=== PATIENT | female | born 1950 | race Caucasian/White ===

== ENCOUNTER 2023-01-14 08:52 | Inpatient (IN) ==
[~2023-01-14 08:52] MED LIST: ceFAZolin 2000MG 2,000 MG/15 ML SYR IV SCH
[2023-01-14] MEDS ORDERED: MoRPHine SULFATE 2 MG/ML CARP IV PRN ×2 (09:00→15:42)
--- NOTE | 2023-01-14 09:05 | Emergency Department Note ---
Impression & Plan Fall, Closed left hip fracture ED Provider Note INFORMANT: Patient ED PROVIDER(S): Oli Meyer DO CHIEF COMPLAINT: Fall, left hip pain PLAN: Disposition: Admission Outpatient prescription management: [none] Discussion with: I spoke with the hospitalist, who will see the patient for admission/observation and further evaluation and consultation. MEDICAL DECISION MAKING: This is a 72-year-old female who presents to the ED with a chief complaint of a fall and left hip pain. The patient states that she was getting ready for cheondoism when she turned and lost her balance falling on her left hip. She does have some mild dementia by history although she seems to be awake and alert and answers questions appropriately. The patient also has a history of Parkinson's. She does complain of left hip tenderness on my palpation. No shortening or rotation. There is some discomfort in the left hip with axial loading of the left leg. Neurovascular intact distal. No other injuries. Head is without any hematomas. She denies striking her head or loss of consciousness. Moves upper extremities without discomfort. No pain with axial loading. Thorax is without tenderness. Abdomen soft nontender. X-ray of the left hip and pelvis shows a impacted left femoral neck fracture. Chest x-ray does not show acute process. Urine did not show infection. CBC did not show anemia or leukocytosis. Chemistry panel showed no electrolyte abnormality or significant kidney dysfunction. The patient was given some IV morphine for pain. She will be seen by the hospitalist and orthopedic for further evaluation and care. Triage Nursing notes reviewed. Vital Signs: reviewed Prior /Outside records reviewed: [none] Differential diagnosis: Hip fracture, dislocation, contusion, other Diagnostics, as interpreted by me: 12 lead ECG: Sinus rhythm at a rate of 60. No ST elevation. No PVCs. Normal QTc Cardiac Monitoring ordered: Sinus rhythm in the 60s Medical decision rules: [none] Imaging studies: Chest x-ray: No pneumonia or pneumothorax. X-ray left hip: Femoral neck fracture Procedures: none. Critical care: none. HPI: See MDM above. PAST MEDICAL HISTORY: See Below PAST SURGICAL HISTORY: See Below SOCIAL HISTORY: See Below HOME MEDICATIONS:See Below ALLERGIES: See Below VITALS: See Below PHYSICAL EXAMINATION: See MDM for positive findings otherwise unremarkable. CONSTITUTIONAL/VITAL SIGNS: Reviewed GENERAL:done as appropriate INTEGUMENTARY: done as appropriate HEAD: done as appropriate EYES: done as appropriate RESPIRATORY: done as appropriate CARDIOVASCULAR:done as appropriate GI/ABDOMEN:done as appropriate EXTREMITIES: done as appropriate NEUROLOGICAL: done as appropriate PSYCHIATRIC:done as appropriate MUSCULOSKELETAL:done as appropriate TRIAGE NURSING DOCUMENTATION REVIEWED. Past Med/Surg History Medical History No pertinent past medical history Social History Smoking Status: Never smoker Preferred Language: Vincentian current occupational status: retired Feels Safe at Home: Yes Allergies Allergies Allergy/AdvReac Type Severity Reaction Status Date / Time gluten Allergy Unknown Verified 01/14/23 09:48 fexofenadine AdvReac Unknown Agitated Verified 01/14/23 09:48 pneumococcal vaccine AdvReac Unknown Rash Verified 01/14/23 09:48 procaine AdvReac Unknown Verified 01/14/23 09:48 pseudoephedrine AdvReac Unknown Agitated Verified 01/14/23 09:48 Home Meds Home Medications Medication Instructions Recorded Confirmed ascorbic acid (vitamin C) 500 mg 500 mg PO DAILY@1200 01/14/23 01/14/23 tablet (Vitamin C) calcium-vitamin D3-vitamin K 500 1 tab PO DAILY@13 01/14/23 01/14/23 mg-500 unit-40 mcg chewable tablet carbidopa 25 mg-levodopa 100 mg 1 tab PO DAILY@,,15,01/14/23 01/14/23 tablet carbidopa ER 50 mg-levodopa 200 mg 1 tab PO HS 01/14/23 01/14/23 tablet,extended release docusate sodium 100 mg capsule 100 mg PO BID 01/14/23 01/14/23 entacapone 200 mg tablet 200 mg PO DAILY@,15 01/14/23 01/14/23 glucosamine sulf dipot 1 cap PO DAILY@119901/14/23 01/14/23 chlr,msm,chond 550 mg-C 30 mg-milena 1 mg capsule (Glucosamine Chondroitin) melatonin 5 mg tablet 5 mg PO HS PRN Insomnia 01/14/23 01/14/23 meloxicam 7.5 mg tablet 7.5 mg PO DAILY 01/14/23 01/14/23 omega 3-ipo-lec-fish oil 1,000 mg 1 cap PO DAILY@119901/14/23 01/14/23 (120 mg-180 mg) capsule (Fish Oil) vitamin E 100 unit capsule 100 unit PO DAILY@1200 01/14/23 01/14/23 Results & Data (ED) Vital Signs Vital Signs - 24 hr 01/14/23 09:06 01/14/23 09:00 Temperature 36.5 C Temperature Source Oral Pulse Rate 72 78 Respiratory Rate 18 Respiratory Effort / Characteristics Non-Labored Spontaneous Respiratory Depth Normal Respiratory Pattern Regular Blood Pressure 200/98 H Blood Pressure Mean 132 Blood Pressure Position Sitting Pulse Oximetry 98 Oxygen Delivery Method Room Air Sepsis Recent Fever Within 48 Hours No Sepsis New/Unexplained Change in Mental Status N/A Sepsis Action Taken by Nursing No Action Required Laboratory Data 01/14/23 09:16 01/14/23 09:16 Lab Results 01/14/23 01/14/23 01/14/23 Range/Units 09:02 09:16 09:16 WBC 3.68 L (4.8-10.8) K/ul RBC 4.33 (4.20-5.40) M/uL Hgb 13.7 (12.0-16.0) g/dl Hct 39.7 (37.0-47.0) % MCV 91.7 (80.0-100.0) fL MCH 31.6 (25.0-34.0) pg MCHC 34.5 (32.0-36.0) g/dL RDW Std Deviation 39.3 (36.4-46.3) fL RDW Coeff of [place] 11.7 (11.5-14.5) % Plt Count 223 (130-400) K/uL MPV 8.5 L (9.4-12.4) fL Immature Gran % (Auto) 0.3 % Neut % (Auto) 64.9 % Lymph % (Auto) 24.5 % [place] % (Auto) 9.0 % Eos % (Auto) 0.8 % Baso % (Auto) 0.5 % Neut # (Auto) 2.39 (1.40-6.50) K/uL Lymph # (Auto) 0.90 L (1.2-3.4) K/uL [place] # (Auto) 0.33 (0.11-0.59) K/uL Eos # (Auto) 0.03 (0-0.50) K/uL Baso # (Auto) 0.02 (0-0.2) K/uL Immature Gran # (Auto) 0.01 (0.01-0.20) K/uL Sodium 140 (136-145) mmol/L Potassium 3.7 (3.5-5.1) mmol/L Chloride 108 H (98-107) mmol/L Carbon Dioxide 28 (21-32) mmol/L Anion Gap 4 (3-11) BUN 10 (6-23) mg/dl Creatinine 0.74 (0.6-1.2) mg/dl Est Cr Clr Drug Dosing Not Reportable Est GFR ( Amer) 95.1 ml/min Est GFR (Non-Af Amer) 82.1 ml/min BUN/Creatinine Ratio 13.5 (10-20) Glucose 107 H (70-99(Fasting)) mg/dl Calcium 9.1 (8.6-10.3) mg/dl Total Bilirubin 0.6 (0.2-1.0) mg/dl AST 19 (13-39) U/L ALT 18 (7-52) U/L Alkaline Phosphatase 72 (34-104) U/L Total Protein 6.7 (6.0-8.3) gm/dl Albumin 4.1 (3.4-5.0) gm/dl Globulin 2.6 (2.5-4.0) gm/dl Albumin/Globulin Ratio 1.6 (0.9-2) Urine Color Yellow Urine Appearance Clear (Clear) Urine pH 8.0 H (4.5-7.5) Ur Specific [place] 1.010 (1.000-1.030) Urine Protein Negative (Negative) Urine Glucose (UA) Negative (Negative) Urine Ketones Negative (Negative) Urine Blood Negative (Negative) Urine Nitrite Negative (Negative) Urine Bilirubin Negative (Negative) Urine Urobilinogen Negative (Negative) Ur Leukocyte Esterase Negative (Negative) Administered Medications Morphine Sulfate (Morphine Sulfate 2 Mg/Ml Carp) 2 mg IV Q1H PRN PRN Reason: Moderate Pain (Rating 3,4,5,6) Stop: 01/28/23 08:59 Last Admin: 01/14/23 09:37 Dose: 2 mg Documented By: MARIO Imaging Data Radiologist's Impression: Chest X-Ray 01/14/23 09:00 XR chest 1V portable CLINICAL HISTORY: hip fx? TECHNIQUE: Single frontal radiograph of the chest was obtained. Comparison: Comparison is made to chest radiograph 01/28/2019 FINDINGS: No lines and tubes are seen. The cardiomediastinal silhouette is normal. The lungs are clear. No evidence of pleural effusion or pneumothorax. IMPRESSION: No acute chest disease. ACT 112: Negative or not required by law. Electronically signed by: Toni Navarro M.D. 01/14/2023 9:22 AM Hip X-Ray 01/14/23 09:00 XR hip LT min 2V CLINICAL HISTORY: fall, pain TECHNIQUE: 2 views of the left hip were obtained. Comparison: Comparison is made to pelvis radiograph 01/28/2019 FINDINGS: There is a femoral neck fracture with overriding of fragments. Degenerative changes are seen in the hip joint. Soft tissue swelling is seen. IMPRESSION: Impacted femoral neck fracture with associated soft tissue swelling. ACT 112: Negative or not required by law. Electronically signed by: Toni Navarro M.D. 01/14/2023 9:24 AM Discharge Plan Visit Data Chief Complaint: Hip Pain Stated Complaint: FALL, L HIP & LEG PAIN ED Provider: Oli Meyer Discharge Problem: Fall, Closed left hip fracture Patient Disposition: Being Evaluated by Hospitalist Forms Stand Alone Forms: My [facility] Sp[facility] Prescriptions Prescriptions: No Action vitamin E 100 unit Capsule 100 unit PO DAILY@1200 carbidopa-levodopa 50-200 mg tablet extended release 1 tab PO HS meloxicam 7.5 mg tablet 7.5 mg PO DAILY entacapone 200 mg tablet 200 mg PO DAILY@07,15 ascorbic acid (vitamin C) [Vitamin C] 500 mg Tablet 500 mg PO DAILY@1200 docusate sodium 100 mg Capsule 100 mg PO BID carbidopa-levodopa 25-100 mg tablet 1 tab PO DAILY@07,11,15,19 melatonin 5 mg Tablet 5 mg PO HS PRN (Reason: Insomnia) calcium-vitamin D3-vitamin K [Viactiv] 500-500-40 mg-unit-mcg Tablet,Chewable 1 tab PO DAILY@13 omega 1-bzx-nfn-fish oil [Fish Oil] 1,000 mg (120 mg-180 mg) Capsule 1 cap PO DAILY@1200 Glucosamine Chondroitin 550-30-1 mg Capsule 1 cap PO DAILY@1200 Referrals Referrals: PCP,NO [Primary Care Provider] -
--- NOTE | 2023-01-14 09:24 | XRay Report ---
XR chest 1V portable CLINICAL HISTORY: hip fx? TECHNIQUE: Single frontal radiograph of the chest was obtained. Comparison: Comparison is made to chest radiograph 01/28/2019 FINDINGS: No lines and tubes are seen. The cardiomediastinal silhouette is normal. The lungs are clear. No evid ence of pleural effusion or pneumothorax. IMPRESSION: No acute chest disease. ACT 112: Negative or not required by law. Electronically signed by: Toni Navarro M.D. 01/14/2023 9:22 AM
--- NOTE | 2023-01-14 09:26 | XRay Report ---
XR hip LT min 2V CLINICAL HISTORY: fall, pain TECHNIQUE: 2 views of the left hip were obtained. Comparison: Comparison is made to pelvis radiograph 01/28/2019 FINDINGS: There is a femoral neck fracture with overriding of fragments. Degenerative changes are seen in the h ip joint. Soft tissue swelling is seen. IMPRESSION: Impacted femoral neck fracture with associated soft tissue swelling. ACT 112: Negative or not required by law. Electronically signed by: Toni Navarro M.D. 01/14/2023 9:24 AM
[2023-01-14 09:48] LABS: Basophils # (auto) 0.02 K/uL (0-0.2); Basophils % (auto) 0.5 %; Eosinophils # (auto) 0.03 K/uL (0-0.50); Eosinophils % (auto) 0.8 %; Hematocrit (blood only) 39.7 % (37.0-47.0); Hemoglobin 13.7 g/dl (12.0-16.0); Immature Granulocytes # (auto) 0.01 K/uL (0.01-0.20); Immature Granulocytes % (auto) 0.3 %; Lymphocytes % (auto) 24.5 %; Mean Corpuscular Hemoglobin 31.6 pg (25.0-34.0); Mean Corpuscular Hgb Conc 34.5 g/dL (32.0-36.0); Mean Corpuscular Volume 91.7 fL (80.0-100.0); Mean Platelet Volume 8.5 fL (9.4-12.4); Monocytes # (auto) 0.33 K/uL (0.11-0.59); Neutrophils # (auto) 2.39 K/uL (1.40-6.50); Neutrophils % (auto) 64.9 %; Platelet Count 223 K/uL (130-400); RDW Coefficient of Variation 11.7 % (11.5-14.5); RDW Standard Deviation 39.3 fL (36.4-46.3); Red Blood Count 4.33 M/uL (4.20-5.40); White Blood Count 3.68 K/ul (4.8-10.8)
[2023-01-14 09:49] LABS: Appearance Urine Clear (Clear); Bilirubin Urine Negative (Negative); Blood Urine Negative (Negative); Color Urine Yellow; Glucose Urine UA Negative (Negative); Ketones Urine Negative (Negative); Leukocyte Esterase Urine Negative (Negative); Nitrite Urine Negative (Negative); Protein Urine Negative (Negative); Urobilinogen Urine Negative (Negative)
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
[2023-01-14 10:00] LABS: Alanine Aminotransferase 18 U/L (7-52); Albumin Globulin Ratio 1.6 (0.9-2); Albumin Level 4.1 gm/dl (3.4-5.0); Alkaline Phosphatase 72 U/L (34-104); Anion Gap 4 (3-11); Aspartate Aminotransferase 19 U/L (13-39); BUN Creatinine Ratio 13.5 (10-20); Bilirubin,Total 0.6 mg/dl (0.2-1.0); Blood Urea Nitrogen 10 mg/dl (6-23); Calcium 9.1 mg/dl (8.6-10.3); Carbon Dioxide 28 mmol/L (21-32); Chloride 108 mmol/L (98-107); Est GFR (African American) 95.1 ml/min; Est GFR (Non-African American) 82.1 ml/min; Globulin 2.6 gm/dl (2.5-4.0); Glucose 107 mg/dl (70-99(Fasting)); Potassium 3.7 mmol/L (3.5-5.1); Sodium 140 mmol/L (136-145); Total Protein 6.7 gm/dl (6.0-8.3)
[2023-01-14] MEDS ORDERED: ACETAMINOPHEN 1,000 MG/100 ML VIAL IV STA (10:11)
[2023-01-14 10:13] LABS: Partial Thromboplastin Ratio 0.8; Partial Thromboplastin Time 22.8 Seconds (21.0-31.0); Prothrombin Time 11.4 Seconds (9.0-12.0)
--- NOTE | 2023-01-14 11:16 | Communication Note ---
Date of Service: January 14, 2023 ATTENDING ADDENDUM: 72 yo F with Parkinsons and peripheral vertigo who presents with an acute left hip fracture after a fall at home. There was no LOC and this was the second fall in two days, precipitated by peripheral vertigo. She is otherwise very functional and ambulates without any assistive device. She denies any chest pain or SOB in the past 6 months and no history of coronary disease or stroke. She is not a diabetic and has normal functioning kidneys. She is not on anticoagulants and last ate something last evening. Reviewed allergies, medical history with her today. DIL present at bedside. She denies pain anywhere other than her left hip. She is not a fan of narcotics or anything that will cause her to feel out of control. After IV tylenol in the ER, her BP went from 200/98 to 172 systolic. She does not have hypertension. Physical exam reveals a WNWD female in mild distress. She has masked facies and some irritation under her her neck that is not quite described as a rash. Head is NC/AT and no tenderness to palpation of the scalp or neck. No rigidity with UE strength 5/5. No sensation abnormality. Legs not moved 2/2 pain. Able to demonstrate normal dorsi/plantar flexion. Heart sounds are somewhat distant on auscultation with S1/2 heard and no murmurs. Lungs are CTAB. Abdomen is soft and ND. Pulses 2+ in all extremities. Workup including CBC, BMP, coags, urine is all negative. EKG reviewed and NSR with no evidence of ischemia. Hip xray and pelvic xray reviewed with left hip fracture seen. Acute left hip fracture after mechanical fall Parkinson's disease Peripheral vertigo Proceed to surgery today with Dr. Ortiz's team. Resume diet post op. Her perioperative risk for surgery is acceptable and is related to her age, which is not modifiable. Cont standard DVT prevention. Cont Sinemet perioperatively as ordered. Cont pain control with Tylenol and PRN oxycodone. DO [employer]
[2023-01-14] MEDS ORDERED: fentaNYL citrate PF 100 MCG/2 ML VIAL ONE (11:21)
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
[2023-01-14] MEDS ORDERED: FAMOTIDINE/PF 20 MG/2 ML VIAL IV ONE (11:32)
[2023-01-14] MEDS ORDERED: DEXAMETHASONE SOD INJ 4 MG/ML VIAL ONE ×2 (11:36→13:07)
[2023-01-14] MEDS ORDERED: PROPOFOL IV EMULSION 10 MG/ML 20 ML VIAL IV ONE ×2 (11:36→12:41)
[2023-01-14] MEDS ORDERED: ONDANSETRON INJ 2 MG/ML 2 ML VIAL ONE (11:36)
[2023-01-14] MEDS ORDERED: ROCURONIUM BROMIDE 10 MG/ML 5 ML VIAL IV ONE (11:36)
[2023-01-14] MEDS ORDERED: LIDOCAINE 2% 2 ML VIAL/AMP(20MG/ML) INFIL ONE (11:36)
[2023-01-14] MEDS ORDERED: HYDROmorphone INJ 2 MG/ML SYR/VIAL ONE (11:37)
--- NOTE | 2023-01-14 11:46 | CT Scan Report ---
CT head/brain wo con CLINICAL HISTORY: fall, dizziness Technique: Contiguous axial CT images of the head were acquired from the base of the skull to the cari alva without intravenous contrast administration. Images were viewed in brain, subdural and bone [facility] ws. Automated dose lowering techniques and/or adjustment according to patient size were utilized for this exam. Comparison: None available at the time of this dictation. Findings: Areas of decreased attenuation are present in the periventricular and subcortical white matter bilate rally consistent with small vessel ischemic disease. Generalized cerebral atrophy with commensurate e nlargement of the ventricles, sulci, and cisterns is also present. There is no acute intracranial hem orrhage or evidence of acute territorial infarction. No shift of the midline structures, mass effect, or extra-axial abnormalities are shown. Atherosclerotic calcifications are present in the intracran ial segments of the internal carotid arteries. Imaged portions of the paranasal sinuses and mastoid air cells are clear. The orbits appear normal. There are no acute fractures of the calvaria or scalp swelling. Impression: No acute intracranial hemorrhage, no evidence of acute territorial infarction or other acute intracra nial disease process. ACT 112: Negative or not required by law. Electronically signed by: Toni Navarro M.D. 01/14/2023 11:45 AM
--- NOTE | 2023-01-14 11:48 | Electrocardiogram Report ---
Test Reason : Blood Pressure : / mmHG Vent. Rate : 074 BPM Atrial Rate : 074 BPM P-R Int : 160 ms QRS Dur : 084 ms QT Int : 398 ms P-R-T Axes : 070 055 073 degrees QTc Int : 441 ms Normal sinus rhythm Normal ECG When compared with ECG of 14-JUL-2019 20:55, No significant change was found Confirmed by Yunior Burk ([id number]) on 01/14/2023 11:47:57 AM Referred By: REFERRED SELF Confirmed By:Quentin Burk
--- NOTE | 2023-01-14 11:53 | CT Scan Report ---
CT cervical spine wo con CLINICAL HISTORY: fall TECHNIQUE: Multidetector row helical CT of the cervical spine was performed without administration of intravenous contrast. Coronal and sagittal reformations were obtained. Automated dose lowering techn iques and/or adjustment according to patient size were utilized for this exam. Comparison: Comparison is made to CT chest 07/14/2019 FINDINGS: No acute fractures or subluxations are identified. Degenerative changes are seen in the visualized sp ine. The alignment is normal. Soft tissues are unremarkable. IMPRESSION: Degenerative changes without evidence of acute bony injury. ACT 112: Negative or not required by law. Electronically signed by: Toni Navarro M.D. 01/14/2023 11:52 AM
[2023-01-14] MEDS ORDERED: fentaNYL citrate PF 100 MCG/2 ML VIAL IV PRN (12:04)
[2023-01-14] MEDS ORDERED: ePHEDrine sulfate 50 MG/ML AMP IV PRN (12:04)
[2023-01-14] MEDS ORDERED: ONDANSETRON INJ 2 MG/ML 2 ML VIAL IV PRN ×3 (12:04→15:42)
[2023-01-14] MEDS ORDERED: ATROPINE SULFATE 0.1 MG/ML 10ML SYR IV PRN (12:04)
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
[2023-01-14] MEDS ORDERED: MIDAZOLAM HCL 1 MG/ML 2ML VIAL ONE (12:14)
[2023-01-14] MEDS ORDERED: BUPIVACAINE 0.5 % 5 MG/1 ML MPF 30ML VIAL ONE (12:16)
[2023-01-14] MEDS ORDERED: THROMBIN FOR SOLN 20000 UNIT KIT ONE (12:16)
[2023-01-14] MEDS ORDERED: LIDOCAINE 1% LOCAL 20 ML VIAL ONE (12:16)
[2023-01-14] MEDS ORDERED: TRANEXAMIC ACID / 0.7% NACL 1000MG/100ML BAG IV ONE (12:36)
[2023-01-14] MEDS ORDERED: ceFAZolin 330 MG/ML 1 GM VIAL ONE ×2 (12:36→13:08)
[2023-01-14] MEDS ORDERED: ePHEDrine sulfate 50 MG/ML AMP ONE (13:07)
[2023-01-14] MEDS ORDERED: ceFAZolin 2000MG 2,000 MG/15 ML SYR IV ONE (13:24)
[2023-01-14] MEDS ORDERED: TRANEXAMIC ACID / 0.7% NACL 1,000 MG/100 ML BAG IV ONE (13:25)
[2023-01-14] MEDS ORDERED: PHENYLEPHRINE HCL 10 MG/ML VIAL ONE (13:43)
--- NOTE | 2023-01-14 14:57 | Operative Report ---
Post Operative Report Pre & Post Diagnosis Operation Date: 01/14/23 11:10 Pre-Op Diagnosis: Closed left hip fracture Post-Op Diagnosis: Closed left hip fracture I identified the patient and participated in the time-out.: Yes Procedure Operation Date: 01/14/23 11:10 Actual Procedures p Bipolar Hip Prosthesis(Left) - Scot Ortiz MD Surgeon Scot Ortiz MD Stock Worker KARI boogie abdoulaye or fellow available Estimated Blood Loss 250 Findings Consistent with Post-Op Diagnosis Specimens None Anesthesia Type Spinal MAC Complications none Disposition Accompanied Patient To Recovery: No Disposition: Recovery Room Indications Rowena is 72. She fell and sustained a left femoral neck fracture. Hemiarthroplasty was recommended and she agreed to proceed. Description of Procedure Informed consent obtained. Patient identified. She identified the operative site as the left hip. I marked with my initials. A preoperative surgical timeout performed. A preop dose of IV antibiotics was given. She was taken to the OR positioned decubitus with the left side up. Axillary roll inserted. Bony prominences inspected and padded. Stolberg body positioner utilized. The left hip was prescrubbed and then prepped and draped in the usual sterile fashion. DVT prophylaxis with the mechanical devices. Postoperatively early mobility mechanical devices and Lovenox. Preop TXA given. A posterior approach to the hip was made. The hip abductor mechanism was split in line with the incision. The short external rotators were elevated up off of the joint capsule and tagged. A posterior capsulotomy was performed. Inferior capsule released. Posterior capsule mobilized. Femur retracted anteriorly and the femoral head was removed and sized to 47. Trial fit well. Labrum and acetabulum intact without arthritis. Hip placed into the 9090 position. Femoral neck cut was made using the template just under 1 fingerbreadth north of the lesser trochanter. Box cutting guide was utilized followed by the canal finder. At this point it was noted that there was a fair amount of blood welling up from the intramedullary canal. This continued throughout the surgical procedure until the canal had plugged. Broaching began at size 10. Anteversion was applied but limited by bony geometry to about 20 degrees. Broaching up continued up to size 13 at which point there was good fit and fill. Trialing was performed and a 0 neck length looked adequate. There was good stability. The canal was plugged. Canal irrigated. Thrombin was utilized. This seemed to help control the femoral canal bleeding. Canal was dried. 2 bags of Simplex P cement mixed. While in a osteomy liquidy state retrograde fill. Implant inserted in 20 to 25 degrees of anteversion and lateral positioning. Held until cement hardened. Trialing again performed and 3.5+ neck length selected. In neutral internal rotation was at least 30. In abduction internal rotation about 20. There is no impingement. Shuck test was negative in extension and mid position. Copious irrigation was performed throughout the surgical procedure and at the end. Soft tissues Moist. 1% lidocaine with up without epinephrine and half percent Marcaine plain were injected into the skin and subcutaneous tissues to conclusion of the procedure. The short external rotators and joint capsule were repaired back to the hip abductor mechanism and greater trochanter with #1 Ethibond. The gluteal fascia and IT band were closed with a running and interrupted #1 Vicryl. The skin was then closed in layers with 0 and 2-0 Vicryl. Skin closed with benedicto and a dressing consisting of Xeroform 4 x 4's ABD foam tape and a hip abduction pillow was applied. Patient awakened from anesthesia difficulty taken to recovery in stable condition. Resected femoral head sent for specimen. Counts were correct blood loss estimated to be 250 cc. No complications. At the conclusion of the operation spoke to patient's son and informed him my findings. The components inserted were a size 10 centralizer. A small canal restrictor. A 47 shell with appropriate inner liner for 28 mm +3 head. A size 12 Sherwin LD fracture stem. She will weight-bear as tolerated. We will check an H&H in recovery. Postop TXA. She may weight-bear as tolerated. Check a postop x-ray. I attest to the content of the Intraoperative Record and any orders documented therein. Any exceptions are noted below.
[2023-01-14] MEDS ORDERED: bisacodyL 10 MG SUPP PR PRN ×2 (14:59→15:42)
[2023-01-14] MEDS ORDERED: MAGNESIUM HYDROXIDE SUSP 30 ML UDC PO PRN ×2 (14:59→15:42)
[2023-01-14] MEDS ORDERED: HYDROmorphone INJ 0.5 MG/0.5 ML SYR IV PRN (14:59)
[2023-01-14] MEDS ORDERED: NALOXONE HCL 0.4 MG/1 ML VIAL/CARP IV PRN ×2 (14:59→15:42)
[2023-01-14] MEDS ORDERED: ALUMINUM/MAGNESIUM SUSP 30 ML UDC PO PRN (14:59)
[2023-01-14] MEDS ORDERED: oxyCODONE HCL IR 5 MG TAB (IMMEDIATE RELEASE) PO PRN ×3 (14:59→15:42)
[2023-01-14] MEDS ORDERED: METOCLOPRAMIDE HCL INJ 5 MG/ML 2 ML VIAL IV PRN (14:59)
[2023-01-14] MEDS ORDERED: diphenhydrAMINE 50 MG/ML VIAL IV PRN (14:59)
--- NOTE | 2023-01-14 14:59 | Operative Report ---
Post Operative Report Pre & Post Diagnosis Operation Date: 01/14/23 11:10 Pre-Op Diagnosis: Closed left hip fracture Post-Op Diagnosis: Closed left hip fracture I identified the patient and participated in the time-out.: Yes Procedure Operation Date: 01/14/23 11:10 Actual Procedures p Bipolar Hip Prosthesis(Left) - Scot Ortiz MD Surgeon Scot Ortiz Research Computing Specialist KARI [place] or fellow available Estimated Blood Loss 250 Findings Consistent with Post-Op Diagnosis Specimens femoral head Description of Procedure I was present during the case assisting with wound retraction, would closure, dressing and abduction pillow placement. No fellow present. Please see Dr. Ortiz procedure note for specifics of the case. I attest to the content of the Intraoperative Record and any orders documented therein. Any exceptions are noted below.
--- NOTE | 2023-01-14 15:02 | Anesthesiology Progress Note ---
Date of Service January 14, 2023 Anesthesia Post Procedure Vital Signs Vital Signs: Temp Pulse Resp BP Pulse Ox O2 Del Method 01/14/23 12:00 85 20 189/85 H 97 Room Air 01/14/23 11:00 68 12 174/84 H 98 Room Air 01/14/23 09:00 97.7 F 78 18 200/98 H 98 Room Air 01/14/23 09:06 72 Pain Intensity Left Hip: Pain Intensity: 8 Transfer of Care Handoff Completed per policy Notes Mental Status: alert / awake / arousable and participated in evaluation Patient Amnestic to Procedure: Yes Nausea / Vomiting: adequately controlled Pain: adequately controlled Airway Patency, RR, SpO2: stable & adequate BP & HR: stable & adequate Hydration State: stable & adequate Neuraxial Anesthesia: was administered and sensory block is resolving Anesthetic Complications: no major complications apparent and Pt Satisfied with anesthetic care
[2023-01-14 15:40] LABS: Hematocrit (blood only) 36.2 % (37.0-47.0); Hemoglobin 12.4 g/dl (12.0-16.0)
[2023-01-14] MEDS ORDERED: POLYETHYLENE (MIRALAX) 17 GM PACK PO PRN (15:42)
[2023-01-14] MEDS ORDERED: SODIUM CHLORIDE 0.9% 1000ML 1,000 ML IV SCH (15:42)
[2023-01-14] MEDS ORDERED: ACETAMINOPHEN 325 MG TAB PO PRN (15:42)
[2023-01-14] MEDS: KETOROLAC TROMETHAMINE 15 MG/ML VIAL IV SCH ×2 (17:42→21:51)
[2023-01-14] MEDS: ENTACAPONE 200 MG TAB PO SCH (17:43)
[2023-01-14] MEDS: CARBIDOPA/LEVODOPA 25/100MG TAB PO SCH ×2 (17:44→19:50)
[2023-01-14] MEDS: SODIUM CHLORIDE 0.9% 1000ML 1,000 ML IV SCH (17:45)
[2023-01-14] MEDS ORDERED: LACTATED RINGER'S 1,000 ML IV ONE (18:57)
--- NOTE | 2023-01-14 19:51 | Orthopedic Progress Note ---
Date of Service January 14, 2023 Assessment & Plan (1) Closed left hip fracture: Plan: She is stable postop. X-rays show good positioning of the implant on the AP view without complication. I have ordered a lateral view. Her postop H&H is acceptable. She has mild hypotension and tachycardia. She is getting some fluids at this time through the medicine service. Surgical findings are discussed. Her vitamin D level is low and will need to be addressed. Admission and Anticipated Discharge Date Admission Date: January 14, 2023 Subjective Patient reports some discomfort in her left hip. Otherwise she is doing well. Physical Exam Physical Exam: DP and PT pulses are trace to 1+. Palpable bilaterally. Ankle and toe plantarflexion dorsiflexion inversion and eversion is 4 out of 5 on the left. Sensation is reported to be grossly intact to light touch in the left leg ankle and foot area. Her dressing is clean and dry her thigh is not tense or swollen. Results & Data Vital Signs (Past 12 Hours) Vital Signs Temp Pulse Pulse Pulse Resp BP BP 01/14/23 18:47 108 H 87/59 L 01/14/23 18:35 36.5 C 106 H 16 83/57 L 01/14/23 17:35 36.4 C L 106 H 16 93/65 L 01/14/23 16:35 36.4 C L 108 H 16 110/76 01/14/23 16:05 36.4 C L 87 16 107/72 01/14/23 15:46 36.4 C L 75 16 118/75 01/14/23 15:15 72 14 114/69 01/14/23 15:05 81 12 104/67 01/14/23 15:25 36.4 C L 78 15 118/78 01/14/23 14:57 36.4 C L 76 12 109/69 01/14/23 12:00 85 20 189/85 H 01/14/23 11:00 68 12 174/84 H 01/14/23 09:00 36.5 C 78 18 200/98 H 01/14/23 09:06 72 Pulse Ox O2 Del Method O2 Flow Rate 01/14/23 18:47 99 Room Air 01/14/23 18:35 97 Room Air 01/14/23 17:35 99 Room Air 01/14/23 16:35 99 Room Air 01/14/23 16:05 100 Room Air 01/14/23 15:46 99 Room Air 01/14/23 15:15 99 Nasal Cannula 2 01/14/23 15:05 99 Room Air 01/14/23 15:25 100 Nasal Cannula 2 01/14/23 14:57 99 Room Air 01/14/23 12:00 97 Room Air 01/14/23 11:00 98 Room Air 01/14/23 09:00 98 Room Air 01/14/23 09:06
[2023-01-14] MEDS ORDERED: TRANEXAMIC ACID / 0.7% NACL 1,000 MG/100 ML BAG IV SCH (21:00)
--- NOTE | 2023-01-14 21:12 | XRay Report ---
XR pelvis 1-2V routine CLINICAL HISTORY: In PACU - Post Surgical TECHNIQUE: A single frontal view of the pelvis was obtained. Comparison: Comparison is made to left hip radiograph 01/14/2023 FINDINGS: Patient is status post total hip arthroplasty with expected postsurgical changes including soft tissu e swelling, and subcutaneous emphysema. No periarticular lucency or hardware fracture is seen. IMPRESSION: Expected postoperative appearance status post placement of total hip arthroplasty. ACT 112: Negative or not required by law. Electronically signed by: Toni Navarro M.D. 01/14/2023 9:10 PM
[2023-01-14] MEDS: DOCUSATE SODIUM 100 MG CAP PO SCH (21:51)
[2023-01-14] MEDS: SENNA 8.6 MG TAB PO SCH (21:51)
[2023-01-14] MEDS: CARBIDOPA/LEVODOPA 50/200MG EXT REL TAB PO SCH (21:51)
[2023-01-14] MEDS: ACETAMINOPHEN 500 MG TAB PO SCH (21:52)
[2023-01-14] MEDS: ceFAZolin 1000MG 1,000 MG/7.5 ML SYR IV SCH (21:57)
[2023-01-14] MEDS: DOCUSATE SODIUM/SENNA 50/8.6MG TAB PO SCH (21:57)
[2023-01-15] MEDS: KETOROLAC TROMETHAMINE 15 MG/ML VIAL IV SCH ×2 (02:12→08:14)
[2023-01-15] MEDS: SODIUM CHLORIDE 0.9% 1000ML 1,000 ML IV SCH ×3 (03:32→15:40)
[2023-01-15] MEDS: ceFAZolin 1000MG 1,000 MG/7.5 ML SYR IV SCH (04:39)
[2023-01-15] MEDS: ACETAMINOPHEN 500 MG TAB PO SCH ×3 (06:09→21:36)
--- NOTE | 2023-01-15 07:02 | XRay Report ---
CROSSTABLE LATERAL RADIOGRAPH OF THE LEFT HIP CLINICAL HISTORY: shoot thru lateral only COMPARISON: Left hip radiographs January 14, 2023. FINDINGS: Left hip arthroplasty appears anatomic on crosstable lateral projection. No periprosthetic fracture is noted. There are skin benedicto. IMPRESSION: Expected appearance of the left hip arthroplasty on crosstable lateral projection. ACT 112: Negative or not required by law. Electronically signed by: Raman Howard M.D. 01/15/2023 7:00 AM
[2023-01-15 07:23] LABS: Hematocrit (blood only) 22.8 % (37.0-47.0); Hemoglobin 7.9 g/dl (12.0-16.0); Mean Corpuscular Hemoglobin 31.9 pg (25.0-34.0); Mean Corpuscular Hgb Conc 34.6 g/dL (32.0-36.0); Mean Corpuscular Volume 91.9 fL (80.0-100.0); Mean Platelet Volume 8.7 fL (9.4-12.4); Platelet Count 149 K/uL (130-400); RDW Coefficient of Variation 11.9 % (11.5-14.5); RDW Standard Deviation 40.6 fL (36.4-46.3); Red Blood Count 2.48 M/uL (4.20-5.40); White Blood Count 7.58 K/ul (4.8-10.8)
[2023-01-15] MEDS: ENTACAPONE 200 MG TAB PO SCH ×2 (07:29→16:03)
[2023-01-15] MEDS: CARBIDOPA/LEVODOPA 25/100MG TAB PO SCH ×4 (07:29→19:13)
[2023-01-15 07:36] LABS: BUN Creatinine Ratio 23.9 (10-20); Calcium 7.9 mg/dl (8.6-10.3); Creatinine Clr Calc Pharmacy 53.3 ml/min; Est GFR (African American) 73.1 ml/min; Est GFR (Non-African American) 63.1 ml/min; Potassium 4.7 mmol/L (3.5-5.1)
[2023-01-15 07:39] LABS: Basophils # (auto) 0.01 K/uL (0-0.2); Basophils % (auto) 0.1 %; Eosinophils # (auto) 0.01 K/uL (0-0.50); Eosinophils % (auto) 0.1 %; Immature Granulocytes # (auto) 0.04 K/uL (0.01-0.20); Immature Granulocytes % (auto) 0.5 %; Lymphocytes # (auto) 0.84 K/uL (1.2-3.4); Lymphocytes % (auto) 11.1 %; Monocytes # (auto) 0.74 K/uL (0.11-0.59); Monocytes % (auto) 9.8 %; Neutrophils # (auto) 5.94 K/uL (1.40-6.50); Neutrophils % (auto) 78.4 %; RBC Morphology Unremarkable
[2023-01-15] MEDS ORDERED: SODIUM CHLORIDE 0.9% 250 ML IV PRN ×2 (07:54→11:41)
[2023-01-15] MEDS ORDERED: dexAMETHasone 4 MG TAB PO SCH (08:00)
[2023-01-15] MEDS: MULTIVITAMIN TAB PO SCH (08:13)
[2023-01-15] MEDS: DOCUSATE SODIUM 100 MG CAP PO SCH ×2 (08:13→20:01)
[2023-01-15] MEDS: ENOXAPARIN INJ 40 MG/0.4 ML SYR SQ SCH (08:14)
--- NOTE | 2023-01-15 10:09 | Orthopedic Progress Note ---
Date of Service January 15, 2023 Assessment & Plan (1) S/P hip hemiarthroplasty: Plan: The patient and her son were educated regarding today's findings. Conservative care measures were discussed. Therapy can be tried again later today if her BP improves. I did speak with case management. They will visit with the patient and her son today to discuss short-term placement. Obviously she will not go anywhere today given her BP issues. Continue with ice to the hip intermittently as needed. Dressings will be changed tomorrow. Continue with PT/OT. Continue with SCDs. Continue with the wedge pillow for protection/hip precautions. Admission and Anticipated Discharge Date Admission Date: January 14, 2023 Subjective This 72-year-old female is seen today in her room, with her son present as well as the occupational therapist and nurse. She describes soreness in her left hip, but currently has no distinct pain. Therapy did attempt a standard at bedside today, but the patient became dizzy. BP at that time dropped to 65/30. Reclining in bed her BP recovered to 145/71. She denied any dizziness when reclining. She currently has no other complaints. No nausea, vomiting, chest pain, or shortness of breath. She does have known Parkinson's disease. Physical Exam Physical Exam: General: Frail, elderly female, in no acute distress. Laying in bed. Alert and oriented. Flat affect. Skin: Warm and dry with fair turgor. No rashes. No ecchymosis or edema. Postsurgical dressing is in place on the left hip. There is no bleeding through the bandages. Musculoskeletal: The patient has intact motor function of the left ankle and toes. She is able to flex and extend her knee and hip. She is able to rise from the bed with some assistance, and can stand on her own, though she becomes dizzy and lightheaded. Supple motion of the hip at this time. No appreciable leg length inequality. Neurologic: Gross sensation is intact across both lower extremities by soft touch. Peripheral pulses are 2+. Results & Data Vital Signs (Past 12 Hours) Vital Signs Temp Pulse Pulse Resp BP BP Pulse Ox 01/15/23 08:28 101 H 145/71 H 99 01/15/23 07:42 36.5 C 82 16 93/56 L 99 01/15/23 04:00 36.2 C L 89 16 94/56 L 97 01/15/23 00:22 36.3 C L 97 H 16 97/60 L 94 O2 Del Method 01/15/23 08:28 Room Air 01/15/23 07:42 Room Air 01/15/23 04:00 Room Air 01/15/23 00:22 Room Air Laboratory Results CBC obtained this morning shows white count of 7.58. H&H of 7.9 and 22.8. Platelets 149,000. Sodium 139, potassium 4.7, chloride 109, CO2 28. BUN of 22 with creatinine 0.92. Glucose 144.
[2023-01-15] MEDS: CHOLECALCIFEROL 1,000 UNITS 25 MCG TAB PO SCH (10:18)
[2023-01-15] MEDS ORDERED: HYDROCORTISONE SOD 50 MG in SYRINGE 0 ML IV ONE (11:00)
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
[2023-01-15] MEDS ORDERED: ERGOCALCIFEROL 50,000 UNITS 1250 MCG CAP PO ONE (19:00)
[2023-01-15] MEDS: CARBIDOPA/LEVODOPA 50/200MG EXT REL TAB PO SCH (20:01)
[2023-01-15] MEDS: DOCUSATE SODIUM/SENNA 50/8.6MG TAB PO SCH (20:01)
[2023-01-15] MEDS: SENNA 8.6 MG TAB PO SCH (20:02)
[2023-01-16] MEDS: ACETAMINOPHEN 500 MG TAB PO SCH ×3 (06:00→23:00)
[2023-01-16] MEDS: SODIUM CHLORIDE 0.9% 1000ML 1,000 ML IV SCH (06:00)
[2023-01-16] MEDS: CARBIDOPA/LEVODOPA 25/100MG TAB PO SCH ×4 (06:01→20:29)
[2023-01-16] MEDS: ENTACAPONE 200 MG TAB PO SCH ×2 (06:02→15:53)
[2023-01-16 06:48] LABS: Hematocrit (blood only) 24.8 % (37.0-47.0); Hemoglobin 8.6 g/dl (12.0-16.0); Mean Corpuscular Hemoglobin 31.6 pg (25.0-34.0); Mean Corpuscular Hgb Conc 34.7 g/dL (32.0-36.0); Mean Corpuscular Volume 91.2 fL (80.0-100.0); Platelet Count 164 K/uL (130-400); RDW Coefficient of Variation 12.4 % (11.5-14.5); RDW Standard Deviation 40.8 fL (36.4-46.3); Red Blood Count 2.72 M/uL (4.20-5.40); White Blood Count 9.95 K/ul (4.8-10.8)
[2023-01-16 07:17] LABS: BUN Creatinine Ratio 24.6 (10-20); Calcium 8.5 mg/dl (8.6-10.3); Creatinine Clr Calc Pharmacy 75.4 ml/min; Est GFR (African American) 104.3 ml/min; Magnesium 1.8 mg/dl (1.7-2.4); Potassium 3.6 mmol/L (3.5-5.1)
[2023-01-16] MEDS: MULTIVITAMIN TAB PO SCH (08:25)
[2023-01-16] MEDS: CHOLECALCIFEROL 1,000 UNITS 25 MCG TAB PO SCH (08:25)
[2023-01-16] MEDS: DOCUSATE SODIUM 100 MG CAP PO SCH ×2 (08:25→20:30)
[2023-01-16] MEDS: ENOXAPARIN INJ 40 MG/0.4 ML SYR SQ SCH (08:26)
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
[2023-01-16] MEDS ORDERED: MECLIZINE 12.5 MG TAB PO PRN (10:32)
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
[2023-01-16] MEDS: DOCUSATE SODIUM/SENNA 50/8.6MG TAB PO SCH (20:29)
[2023-01-16] MEDS: CARBIDOPA/LEVODOPA 50/200MG EXT REL TAB PO SCH (20:29)
[2023-01-16] MEDS: SENNA 8.6 MG TAB PO SCH (20:30)
[2023-01-17] MEDS: ACETAMINOPHEN 500 MG TAB PO SCH ×2 (05:50→13:30)
[2023-01-17] MEDS: CARBIDOPA/LEVODOPA 25/100MG TAB PO SCH ×3 (05:50→13:32)
[2023-01-17] MEDS: ENTACAPONE 200 MG TAB PO SCH ×2 (05:50→13:32)
[2023-01-17 06:29] LABS: Hematocrit (blood only) 24.1 % (37.0-47.0); Hemoglobin 8.2 g/dl (12.0-16.0); Mean Corpuscular Hemoglobin 31.4 pg (25.0-34.0); Mean Corpuscular Volume 92.3 fL (80.0-100.0); Mean Platelet Volume 8.9 fL (9.4-12.4); Platelet Count 164 K/uL (130-400); RDW Coefficient of Variation 12.4 % (11.5-14.5); RDW Standard Deviation 42.1 fL (36.4-46.3); Red Blood Count 2.61 M/uL (4.20-5.40)
[2023-01-17 06:41] LABS: Calcium 8.3 mg/dl (8.6-10.3); Creatinine Clr Calc Pharmacy 77.8 ml/min; Est GFR (African American) 105.3 ml/min; Est GFR (Non-African American) 90.9 ml/min; Magnesium 1.7 mg/dl (1.7-2.4); Potassium 3.2 mmol/L (3.5-5.1)
[2023-01-17] MEDS: CHOLECALCIFEROL 1,000 UNITS 25 MCG TAB PO SCH (08:17)
[2023-01-17] MEDS: DOCUSATE SODIUM 100 MG CAP PO SCH (08:17)
[2023-01-17] MEDS: MULTIVITAMIN TAB PO SCH (08:17)
[2023-01-17] MEDS: ENOXAPARIN INJ 40 MG/0.4 ML SYR SQ SCH (08:17)
[2023-01-17] MEDS ORDERED: POTASSIUM CHLORIDE CRTAB 20 MEQ TABCR PO ONE (09:11)
[2023-01-17] MEDS ORDERED: SODIUM CHLORIDE 0.9% 1000ML 1,000 ML IV SCH (09:15)
--- NOTE | 2023-01-17 09:22 | Orthopedic Progress Note ---
Date of Service January 17, 2023 Assessment & Plan (1) S/P hip hemiarthroplasty: Plan: Postop day 3 status post left hip hemiarthroplasty with Dr. Ortiz. Continue care as per primary service. PT and OT. She may weight-bear as tolerated on her left hip with posterior hip precautions. Abduction pillow between knees when in bed. Standard pillow between knees when sitting in a chair. Teds and AV impulse boots for DVT prophylaxis. Lovenox 40 mg subcu daily for DV T prophylaxis - would recommend at Discharge to do Eliquis 2.5mg BID until discontinued by Dr. Ortiz. Case management for disposition needs. - Waiting for authorization to [facility]. We will discuss findings with Dr. Ortiz. Continue ice to left hip as needed. Follow-up with Dr. Ortiz's office as scheduled. Okay from orthopedic standpoint when medically cleared for discharge. Admission and Anticipated Discharge Date Admission Date: January 14, 2023 Subjective Patient in bed eating breakfast. No complaints of pain in her left hip. Denies any lightheadedness or dizziness today although she has not been out of bed. She has ice on her left hip. Physical Exam Musculoskeletal: Left hip incision dressings are clean dry and intact. No distal edema. Dorsali s pedis pulses 1+. Full ankle range of motion and normal strength. Distal sensation is normal. Calf is supple and nontender. Tolerates logrolling of her left hip. Results & Data Vital Signs (Past 12 Hours) Vital Signs Temp Pulse Resp BP Pulse Ox O2 Del Method 01/17/23 07:33 36.4 C L 68 16 105/65 99 Room Air 01/16/23 22:51 36.5 C 60 16 143/78 H 98 Room Air Laboratory Results 01/17/23 01/17/23 Range/Units 05:56 05:56 WBC 5.30 (4.8-10.8) K/ul RBC 2.61 L (4.20-5.40) M/uL Hgb 8.2 L (12.0-16.0) g/dl Hct 24.1 L (37.0-47.0) % MCV 92.3 (80.0-100.0) fL MCH 31.4 (25.0-34.0) pg MCHC 34.0 (32.0-36.0) g/dL RDW Std Deviation 42.1 (36.4-46.3) fL RDW Coeff of Taina 12.4 (11.5-14.5) % Plt Count 164 (130-400) K/uL MPV 8.9 L (9.4-12.4) fL Sodium 141 (136-145) mmol/L Potassium 3.2 L (3.5-5.1) mmol/L Chloride 110 H (98-107) mmol/L Carbon Dioxide 29 (21-32) mmol/L Anion Gap 2 L (3-11) BUN 12 (6-23) mg/dl Creatinine 0.63 (0.6-1.2) mg/dl Est Cr Clr Drug Dosing 77.8 ml/min Est GFR ( Amer) 105.3 ml/min Est GFR (Non-Af Amer) 90.9 ml/min BUN/Creatinine Ratio 19.0 (10-20) Glucose 90 (70-99(Fasting)) mg/dl Calcium 8.3 L (8.6-10.3) mg/dl Magnesium 1.7 (1.7-2.4) mg/dl
--- NOTE | 2023-01-17 12:11 | Hospitalist Progress Note ---
Date of Service January 17, 2023 Assessment & Plan (1) Fall: (2) Closed left hip fracture: Plan: Patient is 72-year-old female with PMH Parkinson's disease, celiac disease, h/o traumatic brain injury presented to ER with complaint of dizziness and fall and left hip pain. Closed left hip fracture S/P bipolar hip prosthesis by Dr. Ortiz on 01/14/2023 Secondary to Fall Postoperative acute blood loss anemia S/P 1 unit PRBCs --Left Hip Xray: Impacted femoral neck fracture with associated soft tissue swelling. --Bowel regimen improved prevent constipation --PT OT, fall precautions, ice as needed Hb 8.2 today Plan to discharge to [facility] today Orthostatic hypotension Sinus Tachycardia received IVF, now resolved continue to monitor off fluids Hypokalemia replete with 40meq KCL x 1 today follow bmp at rehab (3) Elevated blood pressure reading: Plan: While in ED Likely situational secondary to pain BP has normalized (4) History of vertigo: Plan: H/O vertigo. Previously had Nani maneuver by outpatient PT with some improvement fall precautions Vitamin D deficiency Continue vitamin D supplements (5) Parkinsons: Plan: Continue carbidopa/levodopa, entacapone Follows with [facility] [place] (6) Celiac disease: Plan: change to regular diet per pt preference DVT Prophylaxis Lovenox SQ Per Orthopedics change to eliquis 2.5mg bid upon discharge until discontinued by Dr. Ortiz Code Status DNR/DNI Disposition Pt accepted to [facility], plan for d/c today Admission and Anticipated Discharge Date Admission Date: January 14, 2023 Supervising Physician Co-Signing Physician Notes Patient is seen and examined at bedside. Dizziness much improved. Denies any significant pain at surgical site. Denies any chest pain, dyspnea, nausea, vomiting, abdominal pain. Physical Exam: Vitals signs as noted above General Appearance:Thin, Frail, no apparent distress Head: normocephalic, Atraumatic Eyes: normal inspection, EOMI Neck: supple, Trachea midline Respiratory/Chest: Normal breath sounds, CTA, No accessory muscle use Cardiovascular: S1, S2, No murmur Abdomen/GI:Soft, Non tender, Bowel sounds present Extremities/Musculoskeletal:normal inspection, no edema, +L hip surgical site in dressing Neurologic/Psych:AAOX3, grossly no focal neurological deficits Skin: normal color, warm Closed left hip fracture S/P bipolar hip prosthesis by Dr. Ortiz on 01/14/2023 Secondary to Fall Postoperative acute blood loss anemia Hemoglobin stable Dizziness improved Appreciate orthopedics input Plan to discharge to rehab facility for further management. I personally reviewed the record. Patient is interviewed and examined at bedside. Patient's care is coordinated with Shaista Saini PA-C. Please refer to the documentation above for details of patient's presentation and for discussion of other issues. Subjective Pt seen and examined in 318. F/U hip surgery. No acute complaints this morning. Denies dizziness but states, " I haven't gotten out of bed." Denies f/c/s, chest pain, sob, n/v/d. Nurse states no further hypotension or reported dizziness. Review of Systems Review of Systems: All systems reviewed & are unremarkable except as noted in HPI & below Physical Exam Physical Exam: Gen: Thin, elderly female, sitting up in bed, NAD, A&O x3, masked facies HEENT: Normocephalic, atraumatic, conjunctivae moist, sclerae anicteric, mucous membranes moist. Lung: Clear to Auscultation bilaterally, no wheezes/rales/rhonchi Heart: Regular rate, regular rhythm, no murmurs, rubs, or gallops Abdomen: Soft, NT, ND +BS x 4 Extremities: No edema, L hip dressing cdi Skin: Warm, no rash, negative turgor. Results & Data Results & Data Vital Signs (Past 12 Hours) Vital Signs Temp Pulse Resp BP Pulse Ox O2 Del Method 01/17/23 07:33 36.4 C L 68 16 105/65 99 Room Air Laboratory Results Short CBC 01/17/23 Range/Units 05:56 WBC 5.30 (4.8-10.8) K/ul Hgb 8.2 L (12.0-16.0) g/dl Hct 24.1 L (37.0-47.0) % Plt Count 164 (130-400) K/uL BMP 01/17/23 05:56 Sodium 141 Potassium 3.2 L Chloride 110 H Carbon Dioxide 29 BUN 12 Creatinine 0.63 Glucose 90 Calcium 8.3 L Medications Administered Current Inpatient Medications Acetaminophen (Acetaminophen 500 Mg Tab) 1,000 mg PO Q8 ISABELL Stop: 02/13/23 21:59 Last Admin: 01/17/23 05:50 Dose: 1,000 mg Acetaminophen (Acetaminophen 325 Mg Tab) 650 mg PO Q4H PRN PRN Reason: Pain or Fever Stop: 02/13/23 15:41 Al Hydrox/Mg Hydrox/Simethicone (Aluminum/Magnesium Susp 30 Ml Udc) 15 ml PO Q4H PRN PRN Reason: Heartburn Stop: 02/13/23 14:58 Bisacodyl (Bisacodyl 10 Mg Supp) 10 mg AK DAILY PRN PRN Reason: Constipation Stop: 02/13/23 15:41 Carbidopa/Levodopa (Carbidopa/Levodopa 50/200mg Ext Rel Tab) 1 tab PO HS ISABELL Stop: 02/13/23 20:59 Last Admin: 01/16/23 20:29 Dose: 1 tab Carbidopa/Levodopa (Carbidopa/Levodopa 25/100mg Tab) 1 tab PO DAILY@,,, ISABELL Stop: 02/13/23 15:41 Last Admin: 01/17/23 10:27 Dose: 1 tab Diphenhydramine HCl (Diphenhydramine 50 Mg/Ml Vial) 25 mg IV Q8H PRN PRN Reason: Itching Stop: 02/13/23 14:58 Docusate Sodium (Docusate Sodium 100 Mg Cap) 100 mg PO BID ISABELL Stop: 02/13/23 20:59 Last Admin: 01/17/23 08:17 Dose: 100 mg Enoxaparin Sodium (Enoxaparin Inj 40 Mg/0.4 Ml Syr) 40 mg SQ QAM ISABELL Stop: 02/14/23 08:59 Last Admin: 01/17/23 08:17 Dose: 40 mg Entacapone (Entacapone 200 Mg Tab) 200 mg PO DAILY@ ISABELL Stop: 02/13/23 16:59 Last Admin: 01/17/23 05:50 Dose: 200 mg Hydromorphone HCl (Hydromorphone Inj 0.5 Mg/0.5 Ml Syr) 0.5 mg IV Q4H PRN PRN Reason: Pain or Pre PT Stop: 01/28/23 14:58 Magnesium Hydroxide (Magnesium Hydroxide Susp 30 Ml Udc) 30 ml PO Q6H PRN PRN Reason: Constipation Stop: 02/13/23 14:58 Meclizine HCl (Meclizine 12.5 Mg Tab) 12.5 mg PO Q8H PRN PRN Reason: Dizziness or Vertigo Stop: 02/15/23 10:31 Metoclopramide HCl (Metoclopramide Hcl Inj 5 Mg/Ml 2 Ml Vial) 10 mg IV Q6H PRN PRN Reason: Nausea And Vomiting Stop: 02/13/23 14:58 Multivitamins (Multivitamin Tab) 1 tab PO QAM [facility] Stop: 02/14/23 08:59 Last Admin: 01/17/23 08:17 Dose: 1 tab Naloxone HCl (Naloxone Hcl 0.4 Mg/1 Ml Vial/Carp) 0.1 mg IV Q5M PRN PRN Reason: Oversedation/Resp Depression Stop: 02/13/23 14:58 Ondansetron HCl (Ondansetron Inj 2 Mg/Ml 2 Ml Vial) 4 mg IV Q6H PRN PRN Reason: Nausea Stop: 02/13/23 15:41 Oxycodone HCl (Oxycodone Hcl Ir 5 Mg Tab (Immediate Release)) 5 - 10 mg PO Q4H PRN PRN Reason: Pain or Pre PT Stop: 01/28/23 14:58 Polyethylene Glycol (Polyethylene (Miralax) 17 Gm Pack) 17 gm PO DAILY PRN PRN Reason: Constipation Stop: 02/13/23 15:41 Senna/Docusate Sodium (Docusate Sodium/Senna 50/8.6mg Tab) 2 tab PO HS [facility] Stop: 02/13/23 20:59 Last Admin: 01/16/23 20:29 Dose: 2 tab Sennosides (Senna 8.6 Mg Tab) 17.2 mg PO HS [facility] Stop: 02/13/23 20:59 Last Admin: 01/16/23 20:30 Dose: 17.2 mg Vitamin D (Cholecalciferol 1,000 Units 25 Mcg Tab) 1,000 units PO QAM [facility] Stop: 02/14/23 08:59 Last Admin: 01/17/23 08:17 Dose: 1,000 units
--- NOTE | 2023-01-17 13:08 | Discharge Summary ---
Discharge Summary Date of Service January 17, 2023 Notes For Next Care Provider Patient admitted with dizziness, fall and left hip pain. Found to have closed left hip fracture. Underwent bipolar hip prosthesis by Dr. Ortiz on 01/14/2023. She did have acute blood loss anemia requiring 1 unit PRBC. Orthopedics recommends discharge on Eliquis 2.5 mg twice daily for DVT prophylaxis. Recommend repeat CBC and BMP in 2 days. Hemoglobin at discharge 8.2. Potassium on day of discharge was 3.2 and she received 40 mEq of oral potassium supplementation. Continue bowel regimen. Medication Changes From Visit Schedule Tylenol 1000 mg every 8 hours. Oxycodone 5 mg every 4 hours as needed for pain. Eliquis 2.5 mg every 12 hours for DVT prophylaxis, continue this until discontinued by Dr. Ortiz. Admission HPI Per Admitting Provider Patient is 72-year-old female with PMH Parkinson's disease, celiac disease, h/o traumatic brain injury presented to ER with complaint of fall and left hip pain today. Patient reports has been having intermittent episodes of vertigo for the past several months. She had some physical therapy with [facility] in past that she thought helped some. States 8 days ago had an episode of dizziness which she describes as "sparkles" in her peripheral vision and then feeling off balance and dizzy and caused her to fall. Denies any injury at that time. Patient states this morning was standing getting dressed when had an onset of dizziness causing her to fall. She reports she hit her head off of the dresser. Patient denies LOC. She was unable to stand and had instant left hip pain. [id number] states they heard her fall and patient was in her normal mental state. Patient reports some tingling sensation to left leg. Denies upper extremity pain or right lower extremity pain. Denies history of injury to hip before. Patient ambulatory at baseline. Has intermittently required walker secondary to dizzy episodes however has not been using recently. [id number] states 8 days ago there was question if patient had slight facial droop however seem to resolve quickly and has not noticed since. And they thought it was secondary to her underlying Parkinson's. Denies fever/chills, diaphoresis, N/V/D/C, KNOWLES, other vision changes, neck pain, CP, SOB, orthopnea, palpitations, cough, rhinorrhea, abdominal pain, extremity edema, rashes, urinary symptoms. In ER found to have left impacted femoral neck fracture. In ER received 2 mg morphine. She reports pain is down to 6 out of 10 on pain scale. Noted hypertensive in ER. Last ate 7pm on 01/13/23. Couple sips water today Admission Exam Per Admitting Provider General: No apparent distress but reports pain, WDWN Head: normocephalic, atraumatic Eyes: PERRL, EOM's intact, +mild lateral nystagmus, conjunctiva non-injected, anicteric ENT: normal inspection external ears, nose, mucous membranes moist Neck: supple, trachea midline, non-tender Lungs: clear, no respiratory distress, no wheezing/rhonchi/rales CV: RRR, no murmur, no pretibial edema Abd: normal BS, soft, non-tender Ext: LLE: Leg shortened, +tenderness to palpation anterior/lateral hip, No attempted ROM, distal pulses intact, sensation to light touch intact. RLE: non- tender, able to flex and extend knee and dorsiflex and plantar flex foot, sensation to light touch intact. BUE: non-tender, ROM intact Neuro: A&O x 3, +masked facies, +resting tremor of hands, left appears worse than right, +hypophonic, face is symmetric, hearing grossly intact, soft palate elevates symmetrically, shoulder shrug intact, tongue is midline, normal movement Skin: warm, dry, dry skin noted to forehead, face Principal Dx & Hospital Course #1 = Principal Diagnosis (1) Fall: (2) Closed left hip fracture: Patient is 72-year-old female with PMH Parkinson's disease, celiac disease, h/o traumatic brain injury presented to ER with complaint of dizziness and fall and left hip pain. Closed left hip fracture S/P bipolar hip prosthesis by Dr. Ortiz on 01/14/2023 Secondary to Fall Postoperative acute blood loss anemia S/P 1 unit PRBCs --Left Hip Xray: Impacted femoral neck fracture with associated soft tissue swelling. --Bowel regimen improved prevent constipation --PT OT, fall precautions, ice as needed Hb 8.2 today Plan to [facility] Orthostatic hypotension Sinus Tachycardia received IVF, now resolved continue to monitor off fluids Hypokalemia replete with 40meq KCL x 1 today follow bmp at rehab (3) Elevated blood pressure reading: While in ED Likely situational secondary to pain BP has normalized (4) History of vertigo: H/O vertigo. Previously had Nani maneuver by outpatient PT with some improvement fall precautions Vitamin D deficiency Continue vitamin D supplements (5) Parkinsons: Continue carbidopa/levodopa, entacapone Follows with [facility] [place] neurology (6) Celiac disease: change to regular diet per pt preference DVT Prophylaxis Lovenox SQ Per Orthopedics change to eliquis 2.5mg bid upon discharge until discontinued by Dr. Ortiz Code Status DNR/DNI Disposition Pt [facility], plan for d/c today Discharge Exam Gen: Thin, elderly female, sitting up in bed, NAD, A&O x3, masked facies HEENT: Normocephalic, atraumatic, conjunctivae moist, sclerae anicteric, mucous membranes moist. Lung: Clear to Auscultation bilaterally, no wheezes/rales/rhonchi Heart: Regular rate, regular rhythm, no murmurs, rubs, or gallops Abdomen: Soft, NT, ND +BS x 4 Extremities: No edema, L hip dressing cdi Skin: Warm, no rash, negative turgor. Updated Medication List Medication Instructions Recorded Confirmed Type carbidopa 25 mg-levodopa 100 mg 1 tab PO DAILY@,,15,01/14/23 01/14/23 History tablet carbidopa ER 50 mg-levodopa 200 mg 1 tab PO HS 01/14/23 01/14/23 History tablet,extended release entacapone 200 mg tablet 200 mg PO DAILY@,01/14/23 01/14/23 History acetaminophen 500 mg tablet 1,000 mg PO Q8 #14 tabs 01/17/23 Rx (Tylenol Extra Strength) cholecalciferol (vitamin D3) 25 1,000 unit PO QAM #30 caps 01/17/23 Rx mcg (1,000 unit) capsule multivitamin with folic acid 400 1 tab PO QAM #20 tabs 01/17/23 Rx mcg tablet (Daily-Stas (with folic acid)) oxycodone 5 mg tablet 5 mg PO Q4H PRN pain #10 tabs 01/17/23 Rx sennosides 8.6 mg-docusate sodium 2 tab PO HS #10 tabs 01/17/23 Rx 50 mg tablet (Senokot-S) Hospital Stay Data Consultations 01/14/23 10:07 ED Decision to Admit Stat 01/14/23 15:42 Consult Anesthesiology Routine Consult Orthopedic Surgery Routine Procedures Performed Operation Date: 01/14/23 11:10 Actual Procedures p Bipolar Hip Prosthesis(Left) - Scot Ortiz MD Diagnostic Imagining Performed Chest X-Ray 01/14/23 09:00 XR chest 1V portable CLINICAL HISTORY: hip fx? TECHNIQUE: Single frontal radiograph of the chest was obtained. Comparison: Comparison is made to chest radiograph 01/28/2019 FINDINGS: No lines and tubes are seen. The cardiomediastinal silhouette is normal. The lungs are clear. No evidence of pleural effusion or pneumothorax. IMPRESSION: No acute chest disease. ACT 112: Negative or not required by law. Electronically signed by: Toni Navarro M.D. 01/14/2023 9:22 AM Hip X-Ray 01/14/23 09:00 XR hip LT min 2V CLINICAL HISTORY: fall, pain TECHNIQUE: 2 views of the left hip were obtained. Comparison: Comparison is made to pelvis radiograph 01/28/2019 FINDINGS: There is a femoral neck fracture with overriding of fragments. Degenerative changes are seen in the hip joint. Soft tissue swelling is seen. IMPRESSION: Impacted femoral neck fracture with associated soft tissue swelling. ACT 112: Negative or not required by law. Electronically signed by: Toni Navarro M.D. 01/14/2023 9:[address] 01/14/23 10:10 CT head/brain wo con CLINICAL HISTORY: fall, dizziness Technique: Contiguous axial CT images of the head were acquired from the base of the skull to the vertex without intravenous contrast administration. Images were viewed in brain, subdural and bone windows. Automated dose lowering techniques and/or adjustment according to patient size were utilized for this exam. Comparison: None available at the time of this dictation. Findings: Areas of decreased attenuation are present in the periventricular and subcortical white matter bilaterally consistent with small vessel ischemic disease. Generalized cerebral atrophy with commensurate enlargement of the ventricles, sulci, and cisterns is also present. There is no acute intracranial hemorrhage or evidence of acute territorial infarction. No shift of the midline structures, mass effect, or extra-axial abnormalities are shown. Atherosclerotic calcifications are present in the intracranial segments of the internal carotid arteries. Imaged portions of the paranasal sinuses and mastoid air cells are clear. The orbits appear normal. There are no acute fractures of the calvaria or scalp swelling. Impression: No acute intracranial hemorrhage, no evidence of acute territorial infarction or other acute intracranial disease process. ACT 112: Negative or not required by law. Electronically signed by: Toni Navarro M.D. 01/14/2023 11:[address] 01/14/23 10:15 CT cervical spine wo con CLINICAL HISTORY: fall TECHNIQUE: Multidetector row helical CT of the cervical spine was performed without administration of intravenous contrast. Coronal and sagittal reformations were obtained. Automated dose lowering techniques and/or adjustment according to patient size were utilized for this exam. Comparison: Comparison is made to CT chest 07/14/2019 FINDINGS: No acute fractures or subluxations are identified. Degenerative changes are seen in the visualized spine. The alignment is normal. Soft tissues are unremarkable. IMPRESSION: Degenerative changes without evidence of acute bony injury. ACT 112: Negative or not required by law. Electronically signed by: Toni Navarro M.D. 01/14/2023 11:52 AM Pelvis X-Ray 01/14/23 14:59 XR pelvis 1-2V routine CLINICAL HISTORY: In PACU - Post Surgical TECHNIQUE: A single frontal view of the pelvis was obtained. Comparison: Comparison is made to left hip radiograph 01/14/2023 FINDINGS: Patient is status post total hip arthroplasty with expected postsurgical changes including soft tissue swelling, and subcutaneous emphysema. No periarticular lucency or hardware fracture is seen. IMPRESSION: Expected postoperative appearance status post placement of total hip arthroplasty. ACT 112: Negative or not required by law. Electronically signed by: Toni Navarro M.D. 01/14/2023 9:10 PM Hip X-Ray 01/14/23 19:26 CROSSTABLE LATERAL RADIOGRAPH OF THE LEFT HIP CLINICAL HISTORY: shoot thru lateral only COMPARISON: Left hip radiographs January 14, 2023. FINDINGS: Left hip arthroplasty appears anatomic on crosstable lateral projection. No periprosthetic fracture is noted. There are skin benedicto. IMPRESSION: Expected appearance of the left hip arthroplasty on crosstable lateral projection. ACT 112: Negative or not required by law. Electronically signed by: Raman Howard M.D. 01/15/2023 7:00 AM Pending Results Patient Have Any Pending Studies at Discharge: No Discharge Instructions Given to Patient (Per Discharging Provider) Your vitamin D level is low and you are being placed on vitamin D supplement DIET: * Resume previous diet. MEDICATIONS: * Eliquis 2.5 mg twice daily. Take this for 2 to 4 weeks after surgery. Continue medication until discontinued by Dr. Ortiz. * Tylenol 1,000mg po every 8 hours * Continue your home medications. * Pain medication as prescribed. * If concerns develop, call your physician's office at . SPECIAL CARE INSTRUCTIONS: * Ice to left hip as needed for pain/swelling. On for 15-20 minutes every 2-3 hours as needed. * Elevate left lower extremity as needed for swelling. * Keep dressing clean, dry, intact. Keep incision covered as needed. After 5 days, may leave open to air if not draining. * You may shower starting on after your surgery. Okay to let water and soap run over incision. Pat incision dry. Redress incision as needed. You may shower with waterproof dressing in place prior to that if necessary. * Your surgical extremity may be discolored due to prepping agents used on the skin. A bluish-green tint is a normal variant and should not cause alarm. Call your doctor at [phone] if: * Temperature above 101 degrees * Pain not relieved by pain medicine ordered * There is increased drainage or redness from any incision * You have any unanswered questions, problems or concerns. FOLLOW UP VISIT: * If not already scheduled, please call the office at to schedule a follow-up appointment. Pain: * The immediate post-operative period after hip replacement surgery is often quite painful. * You are given a prescription for pain medicine. You should take it, as directed, when you need it, especially before physical therapy and before going to bed. Pain that interferes with sleep is very common and can last several months. * You will likely need pain medicine for the first two to four weeks. It will not stop all of the pain. The pain will lessen and as you feel better, you may change to milder pain medicine such as Tylenol. * The most common side effects of pain medicine are nausea and constipation, so don't take more than you need. Physical Therapy: * Follow the "Hip Precautions Instructions." * In some cases, the social media coordinator at the hospital or rehabilitation center will arrange to have a therapist come to your house for the first couple of weeks to help you learn these skills. * You need to practice on your own or with the help of a family member as needed. * When you learn these skills, most of the therapy can be done on your own. Home Exercise: * You were shown a series of exercises in the hospital. Do these exercises three to four times each day including the exercises you were shown in physical therapy. Walking: * With assistance and using the walker Get up and walk several times each day. For the first four weeks, try not to stand or walk for more than one hour at a time. If you do stand or walk for more than one hour, you will not hurt anything, but your leg will likely swell. SELF CARE INSTRUCTIONS AFTER HIP REPLACEMENT Until the incision and soft tissues around your hip have healed, there is a possibility that the hip prosthesis could dislocate. A. Observe the following precautions to prevent dislocation: 1. Don't bend your hip greater than 90 degrees. 2. Avoid crossing your legs or ankles while standing or lying. 3. Sit with your feet placed 6 inches apart. 4. When sitting, keep your knees below your hips. Sit on a firm surface, avoid deep, soft chairs and couches. Use an elevated toilet seat in the bathroom. 5. Don't bend over at the waist. Use a long handled shoehorn and a sock aid to help you put on your shoes and socks. A cleaner greaser can help you pick up man objects that are too high or too low to reach. 6. Keep car riding to a minimum for at least one month after surgery. 7. Use hip abduction pillow while laying in bed to prevent hip dislocation. Continue until doctor tells you to stop. B. Your balance may be shaky for a while. Use a walker until directed by your doctor. C. Use hand rails when walking on stairs. D. Wear low heeled shoes with non-slip soles. E. Be sure that your floors are free of things that could trip you - throw rugs, electrical cords, small objects. Avoid wet and waxed floors F. Try to walk several times a day with rest periods between with assistance G. Continue with all the exercises taught to you in the hospital. Again, make walking a part of your daily routine. TEDs/Elastic Stockings: * The white elastic stockings help limit swelling and prevent blood clots from forming in your legs. The more you wear them, the more they work. * Wear them for six weeks. Prevention of Infection: * Take antibiotics one hour before any dental cleaning, dental work, urological procedure, gastrointestinal procedure or any invasive surgery in order to prevent your new joint from getting infected. * You may get the antibiotics from the doctor performing the procedure or we will call in a prescription to the pharmacy of your choice. Call the office for a prescription at least 2 days prior to your appointment. Things to Watch For: * Drainage from the incision site that occurs more than one week after your surgery. * Severely increased leg pain or swelling. * Increased redness at the incision site. * Fever above 101 degrees Fahrenheit. * Unusual chest pain or shortness of breath. * Unusual pain or burning with urination. Total Time Total Time Spent Total Time Spent (In Minutes): 45 minutes
== END 2023-01-17 15:25 | DRG 522 ==
LOC: ED 08:52 → ASU 12:14 → SUATTDRO 12:15 → 3E 12:15